=== PATIENT | male | born 1985 | race Hispanic/Latino ===

== ENCOUNTER → 2018-09-09 | Outpatient (CLI) | payer OTHER ==
--- NOTE | 2018-09-09 09:30 | Diagnostic Imaging Report ---
PROCEDURE:ABDOMINAL ULTRASOUND COMPARISON:None. INDICATIONS:ABDOMINAL PAIN FINDINGS: Liver: Measures 13.9 cm. Normal hepatic parenchymal echogenicity. No focal mass. Main portal vein: Measures 0.9 cm. Hepatopetal flow. Gallbladder: No gallbladder wall thickening, stone, distension, or pericholecystic fluid. Common Bile Duct: Measures 0.2 cm. No echogenic filling defect. Sonographic Jacobs's sign: None. Right kidney: Measures 10.7 cm. No solid or cystic mass, echogenic calculi, or hydronephrosis. Normal parenchymal echogenicity. Left kidney: Measures 10.3 cm. No solid or cystic mass, echogenic calculi, or hydronephrosis. Normal parenchymal echogenicity. Spleen: Measures 9.7 cm. Pancreas: The visualized portions of the pancreas are normal. Inferior vena cava: Normal. Aorta: Normal. Ascites: None. CONCLUSION: No acute sonographic abnormality. Dictated by: GHADA SHEIKH M.D. on 09/09/2018 at 9:38 Electronically approved by: GHADA SHEIKH M.D. on 09/09/2018 at 9:38
== END ==
LOC: US 07:52
PROVIDERS: ATTEND Internal Medicine Gastroenterology
DX: R10.84 Generalized abdominal pain (principal)
CPT/HCPCS: 76700